=== PATIENT | female | born 1960 | race Caucasian/White ===

== ENCOUNTER 2023-04-13 10:18 | Day surgery (SDC) | payer OTHER ==
[~2023-04-13 10:18] MED LIST: CRESTOR5 MG PO; MAGNES PO; NORFLEX PO; OMEGA3 PO; TYLENOL; VITAMIN D PO; ZEGERID 40 MG1 EACH PO
== END 2023-04-13 16:30 | disposition home or self-care (01) ==
LOC: CIR.AMB 10:18
PROVIDERS: ATTEND Obstetrics & Gynecology
DX: D39.8 Neoplasm of uncertain behavior of other specified female genital organs (principal); N90.0 Mild vulvar dysplasia; N89.1 Moderate vaginal dysplasia; Z20.822 Contact with and (suspected) exposure to COVID-19

== ENCOUNTER 2025-01-02 07:03 | Outpatient (CLI) | payer OTHER | END 2025-01-02 07:04 | disposition home or self-care (01) | LOC: NUCLEAR 07:03 | PROVIDERS: ATTEND Psychiatry & Neurology Neurology | DX: M06.9 Rheumatoid arthritis, unspecified (principal) ==

== ENCOUNTER 2025-05-21 11:33 | Inpatient (IN) | payer OTHER ==
[~2025-05-21] VITALS: Ht 157.5 cm; Wt 82.1 kg
[2025-05-21] MEDS ORDERED: CELEXA10 MG PO (13:14)
[2025-05-21] MEDS ORDERED: HORIZANT300 MG PO (13:15)
[2025-05-21] MEDS ORDERED: AMBIEN5 MG PO (13:16)
[2025-05-21] MEDS ORDERED: MAGNESIUM250 M1 PO (13:16)
[2025-05-21 13:17] VITALS: BP 125/79
[2025-05-21 13:25] LABS: COVID-19 AG NEGATIVE (NEGATIVE)
[2025-05-21 13:55] LABS: RH POSITIVE
[2025-05-29] MEDS ORDERED: MORPHINE SULFATE 4 MG/ML CARTRIDGE IV PRN (06:45)
[2025-05-29] MEDS ORDERED: ONDANSETRON HCL 2 MG/ML VIAL IV PRN (06:45)
[2025-05-29] MEDS ORDERED: OxyCODONE HCL 5 MG TABLET (ROXICODONE) PO PRN (06:45)
[2025-05-29] MEDS ORDERED: RINGERS SOLUTION,LACTATED 1,000 ML IV SCH (06:45)
[2025-05-29] MEDS ORDERED: METRONIDAZOLE/SODIUM CHLORIDE 500 MG/100 ML PIGGYBACK IV ONE (07:45)
[2025-05-29] MEDS ORDERED: CEFAZOLIN SODIUM 1,000 MG VIAL IV ONE (07:45)
[2025-05-29] MEDS ORDERED: SUGAMMADEX SODIUM 200 MG/2 ML VIAL IV ONE (08:15)
[2025-05-29] MEDS ORDERED: SIMETHICONE 125 MG CAPSULE PO SCH (09:00)
[2025-05-29] MEDS ORDERED: CEFAZOLIN SODIUM 1,000 MG VIAL IV SCH (09:00)
[2025-05-29] MEDS ORDERED: MORPHINE SULFATE 4 MG/ML VIAL IV ONE (09:00)
[2025-05-29] MEDS ORDERED: FAMOTIDINE/PF 20 MG/2 ML VIAL IV PUSH SCH (09:00)
[2025-05-29] MEDS ORDERED: ENOXAPARIN SODIUM 40 MG/0.4 ML SYRINGE SUBCUTANEO SCH (09:00)
[2025-05-29 10:37] VITALS: BP 133/95
[2025-05-29] MEDS ORDERED: KETOROLAC TROMETHAMINE 30 MG VIAL IM SCH (12:00)
[2025-05-29 16:00] VITALS: BP 116/73
[2025-05-29 20:00] VITALS: BP 98/65
[2025-05-29 20:20] LABS: BASO % 0.7 % (0.1-1.2); EOS # 0.16 (0.04-0.54); EOS % 1.8 % (0.7-7.0); LYMPH # 2.25 (1.18-3.74); LYMPH % 25.9 % (19.3-53.1); MEAN PLATELET VOLUME 10.60 fl (9.4-12.4); MONO # 0.89 (0.24-0.82); MONO % 10.2 % (4.7-12.5); NEUT # 5.30 (1.56-6.13); NEUT % 61.1 % (34.0-71.1); RED CELL DISTRIBUTION WIDTH 13.6 % (11.6-14.4)
[2025-05-29 20:45] LABS: ALT/SGPT 21.0 U/L (12-78); AST/SGOT 17.0 U/L (15-37); BILIRUBIN TOTAL 0.92 mg/dL (0.3-1.2); BUN CREA RATIO 12.0 (7.0-25.0); CREATININE SERUM 0.83 mg/dL (0.55-1.02); GFR 69.43; GLOBULINA 2.7 G/DL (2.4-3.5); GLUCOSE FASTING 118.0 mg/dL (65-100); OSMOLALITY SERUM 293.0 MOSM/KG (275-295)
[2025-05-29] MEDS ORDERED: METOCLOPRAMIDE HCL 5 MG/ML VIAL IV SCH (21:00)
[2025-05-30 02:32] VITALS: BP 109/65
[2025-05-30 06:44] LABS: BASO % 0.7 % (0.1-1.2); EOS # 0.22 (0.04-0.54); EOS % 2.4 % (0.7-7.0); LYMPH # 2.47 (1.18-3.74); LYMPH % 27.0 % (19.3-53.1); MEAN PLATELET VOLUME 10.80 fl (9.4-12.4); MONO # 0.84 (0.24-0.82); MONO % 9.2 % (4.7-12.5); NEUT # 5.52 (1.56-6.13); NEUT % 60.3 % (34.0-71.1); RED CELL DISTRIBUTION WIDTH 13.7 % (11.6-14.4)
[2025-05-30 07:03] LABS: BUN CREA RATIO 9.0 (7.0-25.0); CREATININE SERUM 0.76 mg/dL (0.55-1.02); GFR 76.86; GLUCOSE FASTING 111.0 mg/dL (65-100); OSMOLALITY SERUM 289.0 MOSM/KG (275-295)
[2025-05-30] MEDS ORDERED: ACETAMINOPHEN 500 MG GEL..CAP PO SCH (08:00)
[2025-05-30 08:40] VITALS: BP 100/64
== END 2025-05-30 13:33 | disposition home or self-care (01) | DRG 743 ==
LOC: O/R 05-29 06:00 → OB/GYN 05-29 08:44 → SURH 05-29 10:30 → OB/GYN 05-30 13:33
PROVIDERS: ADMIT Obstetrics & Gynecology Gynecologic Oncology; ATTEND Obstetrics & Gynecology Gynecologic Oncology
PROC: 0UT74ZZ Resection of Bilateral Fallopian Tubes, Percutaneous Endoscopic Approach (ICD-10-PCS; 2025-05-29)
PROC: 0UT24ZZ Resection of Bilateral Ovaries, Percutaneous Endoscopic Approach (ICD-10-PCS; 2025-05-29)
PROC: 8E0W4CZ Robotic Assisted Procedure of Trunk Region, Percutaneous Endoscopic Approach (ICD-10-PCS; 2025-05-29)
PROC: 0UT94ZZ Resection of Uterus, Percutaneous Endoscopic Approach (ICD-10-PCS; principal; 2025-05-29 10:30)
DX: D25.1 Intramural leiomyoma of uterus (principal); N80.03 Adenomyosis of the uterus; N72 Inflammatory disease of cervix uteri
CPT/HCPCS: 58571; S2900